=== PATIENT | male | born 1950 | race Caucasian/White ===

== ENCOUNTER 2019-07-18 10:08 | Emergency (ER) | payer MEDICARE ==
[2019-07-18 11:54] LABS: ABS Eosinophils 0.4 10^3/ul (0-0.6); ABS Lymphocytes 1.2 10^3/ul (1.0-4.8); ABS Neutrophils 6.6 10^3/ul (1.5-7.7); Eosinophil % 4.8 %; Hematocrit 42 % (42-52); Lymphocyte % 13.3 %; Mean Corpuscular HGB Conc 33 g/dL (31-36); Mean Corpuscular Hemoglobin 28 pg (27-31); Mean Corpuscular Volume 85 fL (80-94); Mean Platelet Volume 7.5 fL (7.4-10.4); Platelet Count 258 10^3/uL (150-450); Red Blood Count 4.95 10^6 /uL (4.18-5.48); Red Cell Distribution Width 16 % (10-15); White Blood Count 9.2 10^3/uL (3.5-10.8)
[2019-07-18 12:08] LABS: Albumin 4.3 g/dL (3.2-5.2); Albumin/Globulin Ratio 1.3 (1-3); BUN/Creatinine Ratio 18.9 (8-20); C Reactive Protein 15.15 mg/L (<8.01); Calcium 9.6 mg/dL (8.6-10.3); EGFR African American 101.8 (>60); EGFR Non-African American 84.2 (>60); Globulin 3.3 g/dL (2-4); Potassium 3.4 mmol/L (3.5-5.0); Total Bilirubin 0.4 mg/dL (0.2-1.0); Total Protein 7.6 g/dL (6.4-8.9)
--- NOTE | 2019-07-18 15:00 | ED ---
GI/ HPI - HPI Summary HPI Summary: This patient is a 69 y/o male, with hx of hemorrhoids, presenting to [facility] c/o rectal bleeding today. Patient reports he had a bowel movement this morning and had rectal bleeding. He describes rectal bleeding as bright red blood. Denies any abd pain, rectal pain, chest pain, shortness of breath. He reports last time he had rectal bleeding he had his hemorrhoid sutured. Patient only takes aspirin. Denies any anticoagulants. His last colonoscopy was about 7 years ago. Home Medications Medication Instructions Recorded Confirmed Type Hydrocortisone SUPP* [Anusol HC 25 mg IN TID #15 supp 07/18/19 Rx Supp*] - History of Current Complaint Chief Complaint: EDGIBleed Time Seen by Provider: 07/18/19 14:46 Stated Complaint: RECTAL BLEEDING PER PT Hx Obtained From: Patient Onset/Duration: Started Hours Ago, Still Present Timing: Lasting Hours Current Severity: None Pain Intensity: 0 - denies any pain Associated Signs and Symptoms: Positive: External Hemorrhoids. Negative: Rectal Pain, Fever, Abdominal Pain, Chest Pain Aggravating Factor(s): Nothing Alleviating Factor(s): Nothing - Allergy/Home Medications Allergies/Adverse Reactions: Allergies Allergy/AdvReac Type Severity Reaction Status Date / Time ranitidine [From Zantac] AdvReac Hives Verified 07/18/19 10:10 Home Medications: Home Medications Hydrocortisone SUPP* [Anusol HC Supp*] 25 mg IN TID #15 supp 07/18/19 [Rx] PMH/Surg Hx/FS Hx/Imm Hx Endocrine/Hematology History: Reports: Hx Diabetes - type 2 Cardiovascular History: Reports: Hx Hypercholesterolemia, Hx Hypertension History: Reports: Hx Benign Prostatic Hyperplasia - Surgical History Surgical History: Yes Surgery Procedure, Year, and Place: Upper back surgery. Carpal tunnel. Anal fistula surgery Infectious Disease History: No Infectious Disease History: Denies: Traveled Outside the [place] in Last 30 Days - Family History Known Family History: Negative: Cardiac Disease - Social History Alcohol Use: None Substance Use Type: Reports: None Smoking Status (MU): Never Smoked Tobacco Review of Systems Negative: Fever Cardiovascular: Negative Respiratory: Negative Gastrointestinal: Other - POSITIVE: rectal bleeding Negative: Abdominal Pain, Other - NEGATIVE: rectal pain All Other Systems Reviewed And Are Negative: Yes Physical Exam - Summary Physical Exam Summary: VITAL SIGNS: Reviewed. GENERAL: Patient is a well-developed and nourished male who is lying comfortable in the stretcher. Patient is not in any acute respiratory distress. HEAD AND FACE: No signs of trauma. No ecchymosis, hematomas or skull depressions. No sinus tenderness. EYES: PERRLA, EOMI x 2, No injected conjunctiva, no nystagmus. EARS: Hearing grossly intact. Ear canals and tympanic membranes are within normal limits. MOUTH: Oropharynx within normal limits. NECK: Supple, trachea is midline, no adenopathy, no JVD, no carotid bruit, no c- spine tenderness, neck with full ROM. CHEST: Symmetric, no tenderness at palpation LUNGS: Clear to auscultation bilaterally. No wheezing or crackles. CVS: Regular rate and rhythm, S1 and S2 present, no murmurs or gallops appreciated. ABDOMEN: Soft, non-tender. No signs of distention. No rebound, no guarding, and no masses palpated. Bowel sounds are normal. RECTAL EXAM: External hemorrhoid at 12 o'clock with remnants of blood. EXTREMITIES: FROM in all major joints, no edema, no cyanosis or clubbing. NEURO: Alert and oriented x 3. No acute neurological deficits. Speech is normal and follows commands. SKIN: Dry and warm Triage Information Reviewed: Yes Vital Signs On Initial Exam: Initial Vitals Temp Pulse Resp BP Pulse Ox 97.4 F 82 16 170/71 97 07/18/19 10:10 07/18/19 10:10 07/18/19 10:10 07/18/19 10:10 07/18/19 10:10 Vital Signs Reviewed: Yes Procedures - Sedation Patient Received Moderate/Deep Sedation with Procedure: No Diagnostics - Vital Signs Vital Signs Temp Pulse Resp BP Pulse Ox 07/18/19 13:53 97.5 F 70 14 149/60 07/18/19 12:07 98.1 F 69 14 115/56 93 07/18/19 10:10 97.4 F 82 16 170/71 97 - Laboratory Lab Results: Lab Results 07/18/19 07/18/19 Range/Units 11:40 11:40 WBC 9.2 (3.5-10.8) 10^3/uL RBC 4.95 (4.18-5.48) 10^6 /uL Hgb 14.0 (14.0-18.0) g/dL Hct 42 (42-52) % MCV 85 (80-94) fL MCH 28 (27-31) pg MCHC 33 (31-36) g/dL RDW 16 H (10-15) % Plt Count 258 (150-450) 10^3/uL MPV 7.5 (7.4-10.4) fL Neut % (Auto) 71.3 % Lymph % (Auto) 13.3 % Warren % (Auto) 10.4 % Eos % (Auto) 4.8 % Baso % (Auto) 0.2 % Absolute Neuts (auto) 6.6 (1.5-7.7) 10^3/ul Absolute Lymphs (auto) 1.2 (1.0-4.8) 10^3/ul Absolute Monos (auto) 1.0 H (0-0.8) 10^3/ul Absolute Eos (auto) 0.4 (0-0.6) 10^3/ul Absolute Basos (auto) 0.0 (0-0.2) 10^3/ul Absolute Nucleated RBC 0.0 10^3/ul Nucleated RBC % 0.0 Sodium 138 (135-145) mmol/L Potassium 3.4 L (3.5-5.0) mmol/L Chloride 100 L (101-111) mmol/L Carbon Dioxide 29 (22-32) mmol/L Anion Gap 9 (2-11) mmol/L BUN 17 (6-24) mg/dL Creatinine 0.90 (0.67-1.17) mg/dL Est GFR ( Amer) 101.8 (>60) Est GFR (Non-Af Amer) 84.2 (>60) BUN/Creatinine Ratio 18.9 (8-20) Glucose 112 H (70-100) mg/dL Calcium 9.6 (8.6-10.3) mg/dL Total Bilirubin 0.40 (0.2-1.0) mg/dL AST 17 (13-39) U/L ALT 18 (7-52) U/L Alkaline Phosphatase 95 (34-104) U/L C-Reactive Protein 15.15 H (<8.01) mg/L Total Protein 7.6 (6.4-8.9) g/dL Albumin 4.3 (3.2-5.2) g/dL Globulin 3.3 (2-4) g/dL Albumin/Globulin Ratio 1.3 (1-3) Lipase 29 (11.0-82.0) U/L Result Diagrams: 07/18/19 11:40 07/18/19 11:40 Lab Statement: Any lab studies that have been ordered have been reviewed, and results considered in the medical decision making process. GIGU Course/Dx - Course Assessment/Plan: This patient is a 69 y/o male, with hx of hemorrhoids, presenting to [facility] c/o rectal bleeding today. Patient reports he had a bowel movement this morning and had rectal bleeding. He describes rectal bleeding as bright red blood. Denies any abd pain, rectal pain, chest pain, shortness of breath. He reports last time he had rectal bleeding he had his hemorrhoid sutured. Patient only takes aspirin. Denies any anticoagulants. His last colonoscopy was about 7 years ago. In the physical exam the patient has a external hemorrhoid. Patient is not taking any blood thinners. Blood test results without any significant abnormality except for potassium level of 3.4, chloride 100, glucose 112 and CRP of 15.1. The H&H is completely normal. Therefore, I believe that the patient is bleeding from an external hemorrhoid. Patient will be given a prescription for Anusol. The patient was discharged home with follow-up from his PCP. However, he was given instructions to return to the emergency department if he develops more bleeding, dizziness, palpitations, or any other symptoms. The patient understands and agrees. He is hemodynamically stable, alert and oriented 3. Plan of care was discussed with the patient and he understands and agrees. All questions were answered at patient satisfaction. There were no further complaints or concerns. Lung exam before discharge: CTA B/L. Good air exchange. No wheezing or crackles heard. CVS : S1 and S2 present. No murmurs appreciated. Patient is alert and oriented x 3. Patient is hemodynamically stable. Patient will be discharged home with follow up from his PCP in the next 2-3 days. - Diagnoses Provider Diagnoses: External hemorrhoid, bleeding Discharge ED - Sign-Out/Discharge Documenting (check all that apply): Patient Departure - Discharge home - Discharge Plan Condition: Stable Disposition: HOME Prescriptions: Hydrocortisone SUPP* [Anusol HC Supp*] 25 mg IN TID #15 supp Patient Education Materials: Hemorrhoids (ED) Referrals: John Weeks MD [Primary Care Provider] - Additional Instructions: FOLLOW UP WITH YOUR PRIMARY CARE PROVIDER IN 2-3 DAYS. RETURN TO THE ED FOR ANY NEW OR WORSENING SYMPTOMS. - Billing Disposition and Condition Condition: STABLE Disposition: Home - Attestation Statements Document Initiated by Zachariah: Yes Documenting Scribe: Yomaira Ramirez Provider For Whom Scribe is Documenting (Include Credential): Daniel Sunshine MD Scribe Attestation: Yomaira Espinoza, scribed for Daniel Sunshine MD on 07/18/19 at 2056. Scribe Documentation Reviewed: Yes Provider Attestation: The documentation as recorded by the Yomaira horvath accurately reflects the service I personally performed and the decisions made by , Daniel Sunshine MD Status of Scribe Document: Viewed
[2019-07-18 15:39] VITALS: BP 139/66
== END 2019-07-18 15:38 | disposition home or self-care (01) ==
LOC: ED 10:08
DX: K64.4 Residual hemorrhoidal skin tags (principal); E11.9 Type 2 diabetes mellitus without complications; E78.00 Pure hypercholesterolemia, unspecified; I10 Essential (primary) hypertension; N40.0 Benign prostatic hyperplasia without lower urinary tract symptoms; Z88.8 Allergy status to other drugs, medicaments and biological substances
CPT/HCPCS: 36415; 80053; 83690; 85025; 86140; 99282